=== PATIENT | female | born 1980 | race Two or more races ===

== ENCOUNTER 2024-06-10 09:46 | Emergency (ER) | payer MEDICAID ==
[~2024-06-10] VITALS: Ht 172.7 cm; Wt 80.0 kg
[2024-06-10 09:51] VITALS: BP 156/106; PULSE 90; RESP 18; TEMP 98.5; O2SAT 98
[2024-06-10] MEDS: LORAZEPAM 0.5MG TABLET PO ONE (11:29)
[2024-06-10 11:31] LABS: BASOPHILS % 0.4 % (0.0-2.0); EOSINOPHILS % 0.1 % (0.0-5.0); HEMATOCRIT. 36.1 % (36.0-48.0); HEMOGLOBIN. 11.5 g/dL (12.0-16.0); LYMPHOCYTES % 22.8 % (20.0-50.0); MEAN CORPUSCULAR HGB CONC 31.7 g/dL (31.0-37.0); MEAN CORPUSCULAR VOLUME 85.1 fL (81.0-99.0); MONOCYTES % 5.9 % (2.0-8.0); NEUTROPHILS % 70.8 % (40.0-76.0); PLATELET 261 x1000/uL (130-400); RED BLOOD CELL COUNT 4.25 mill/uL (4.2-5.4); RED CELL DISTRIBUTION WIDTH 12.4 % (11.6-14.6); WHITE BLOOD COUNT 9.3 x1000/uL (4.5-11.0)
[2024-06-10 11:35] LABS: CHLORIDE 108 mEq/L (98-107); POTASSIUM 3.6 mEq/L (3.5-5.1); SODIUM 142 mEq/L (136-145)
[2024-06-10 11:36] LABS: CARBON DIOXIDE 26 mEq/L (21-32)
[2024-06-10 11:41] LABS: CREATININE 0.9 mg/dL (0.6-1.0); GLUCOSE 102 mg/dL (70-105)
[2024-06-10 11:42] LABS: UREA NITROGEN BLOOD 9 mg/dL (9-23)
[2024-06-10 11:52] LABS: TROPONIN I HIGH SENSITIVITY < 4 ng/L (3.0-34)
[2024-06-10 11:53] LABS: ETHANOL BLOOD < 10 mg/dL (<10)
[2024-06-10 12:01] LABS: HCG SCREEN NEGATIVE
[2024-06-10 13:55] LABS: TROPONIN I HIGH SENSITIVITY < 4 ng/L (3.0-34)
== END 2024-06-10 15:24 | disposition home or self-care (01) ==
LOC: EDSEX 09:46 → ER 09:46 → EDBEDREQ 10:23 → ER 15:24
DX: F41.9 Anxiety disorder, unspecified (principal); R07.9 Chest pain, unspecified
CPT/HCPCS: 36415; 71045; 80048; 80320; 81025; 83880; 84484; 84703; 85025; 85379; 93005; 99285; G0480